=== PATIENT | female | born 1995 | race Caucasian/White ===

== ENCOUNTER 2024-11-02 21:50 | Emergency (ER) | payer MEDICAID ==
[~2024-11-02] VITALS: Ht 167.6 cm; Wt 108.2 kg
[~2024-11-02 21:50] MED LIST: LEXAPRO20 MG PO
[2024-11-02] MEDS ORDERED: LORazepam 1 MG TAB PO ONE (22:00)
[2024-11-02 23:11] LABS: BASOPHILS 0.5 % (0.1-1.2); EOSINOPHILS 1.0 % (0.7-5.8); LYMPHOCYTES 27.3 % (19.3-51.7); MCH 28.8 PG (25.6-32.2); MCHC 32.4 g/dL (32.2-35.5); MCV 89.0 fL (79.4-94.8); MONOCYTES 5.4 % (4.7-12.5); NEUTROPHILS 65.6 % (34.0-71.1); RBC 4.20 M/uL (3.93-5.22)
[2024-11-02 23:28] LABS: ALT (SGPT) 96.0 U/L (14-59); AST (SGOT) 40.0 U/L (15-37); GLOMERULAR FILTRATION RATE,EST 101.0 mL/min (>60); PROTEIN, TOTAL 7.2 g/dL (6.4-8.2); UREA NITROGEN 7.0 mg/dL (7-18)
[2024-11-02] MEDS ORDERED: MAGNESIUM OXIDE 400 MG TABLET PO ONE (23:45)
[2024-11-02] MEDS ORDERED: POTASSIUM CHLORIDE 10 MEQ TABCR PO ONE (23:45)
[2024-11-02] MEDS ORDERED: DOXEPIN HCL75 MG PO (23:59)
[2024-11-02] MEDS ORDERED: BUCAPSOL15 MG PO (23:59)
[2024-11-03] MEDS ORDERED: TOPAMAX100 MG PO
[2024-11-03] MEDS ORDERED: ONDANSETRON ODT8 MG PO
[2024-11-03] MEDS ORDERED: VENTOLIN HFA18 GM
[2024-11-03 00:25] VITALS: BP 140/79
--- NOTE | 2024-11-05 15:52 | EKG ---
[facility] [address] [facility] [place], [place] [address] \T\ T wave abnormality, consider inferior ischemia Abnormal ECG No previous ECGs available Confirmed by Jabier Hollins MD ([id number]) on 11/05/2024 3:52:03 PM Electronically Signed By: JABIER HOLLINS MD 11/05/24 1552 PATIENT NAME: JOE LARSEN Electrocardiogram DATE OF : [birth year] PHYSICIAN: JABIER HOLLINS MD REPORT #: [id number] REPORT IS CONFIDENTIAL AND NOT TO BE RELEASED WITHOUT AUTHORIZATION
== END 2024-11-03 00:29 | disposition home or self-care (01) ==
LOC: ED 21:50
PROVIDERS: Family Medicine
DX: F12.929 Cannabis use, unspecified with intoxication, unspecified (principal); F10.929 Alcohol use, unspecified with intoxication, unspecified; S09.90XA Unspecified injury of head, initial encounter; Z79.899 Other long term (current) drug therapy; X58.XXXA Exposure to other specified factors, initial encounter
CPT/HCPCS: 36415; 70450; 71045; 72125; 80053; 83735; 84484; 84703; 85025; 93005; 93010; 99285-25; A9270; A9270-GY